=== PATIENT | female | born 1980 | race Caucasian/White ===

== ENCOUNTER 2017-02-16 11:20 | Emergency (ER) | payer SELFPAY ==
--- NOTE | 2017-02-16 11:57 | ED Physician Documentation ---
General Adult - HISTORIAN Historian: patient - HPI Stated Complaint: Left Ankle Injury Chief Complaint: General Adult Onset: days ago (1) Timing: still present Severity: moderate Further Comments: yes (Pt is a 36 yo female with L ankle pain after twisting her ankle on her porch last evening. Pain is over the lateral malleolus.) - ROS CONST: no problems EYES/ENT: none CVS/RESP: none GI/: none MS/SKIN/LYMPH: other (L ankle pain) - PAST HX Past History: other () Allergies/Adverse Reactions: Allergies Allergy/AdvReac Type Severity Reaction Status Date / Time codeine Allergy Mild Nausea/Vomi Verified 02/16/17 11:32 ting Home Medications: Ambulatory Orders Medication Instructions Recorded NK [NK] 09/14/14 - SOCIAL HX Smoking History: cigarettes - FAMILY HX Family History: No - VITAL SIGNS Vital Signs: Vital Signs Temp Pulse Resp BP Pulse Ox 98 F 82 18 139/87 98 02/16/17 11:20 02/16/17 11:20 02/16/17 11:20 02/16/17 11:20 02/16/17 11:20 - REVIEWED ASSESSMENTS Nursing Assessment Reviewed: Yes Vitals Reviewed: Yes Progress - Progress Progress: x-ray L ankle: negative air splint crutches prn ice, NSAIDS ED Results Lab/Radiology - Orders Orders: ED Orders Category Date Time Status ANKLE 3 VIEWS OR MORE [RAD] Stat Exams 02/16/17 Ordered General Adult Physical Exam - PHYSICAL EXAM GENERAL APPEARANCE: mild distress NECK: normal inspection, supple RESPIRATORY: no resp distress, chest non-tender CVS: reg rate & rhythm, heart sounds normal BACK: normal inspection SKIN: warm/dry, normal color EXTREMITIES: tenderness (L ankle tenderness, minimal swelling, FROM) NEURO: oriented X3, motor nml, sensation nml Discharge Clincal Impression: Left ankle sprain Qualifiers: Encounter type: initial encounter Involved ligament of ankle: unspecified ligament Qualified Code(s): S93.402A - Sprain of unspecified ligament of left ankle, initial encounter Referrals: Primary Doctor,No [Primary Care Provider] - Condition: Good Disposition: 01 HOME, SELF-CARE Decision to Admit: NO Decision Time: 11:59
[2017-02-16 12:27] VITALS: BP 128/68
--- NOTE | 2017-02-16 15:02 | Diagnostic Imaging Report ---
EVON ZHOU [facility] [address] [facility] [address] [address] Report Submission Date: Feb 16, 2017 11:46:56 AM MEDICAL SUPERINTENDENT Patient Study Name: MINH MARRERO Date: Feb 16, 2017 11:37:12 AM MEDICAL SUPERINTENDENT Modality Type: CR Gender: F Description: LOWER EXTREMITY : 82 Institution: [facility] Physician: EVON ZHOU Examination: Plain film ankle History: Ankle discomfort. Injury Findings: 3 views of the ankle demonstrates normal cortical margins. No fracture or dislocation. Talar dome is intact. No soft tissue swelling. No joint effusion. Impression: No acute osseous process. Electronically signed on Feb 16, 2017 11:46:56 AM MEDICAL SUPERINTENDENT by: Myles WELLS
== END 2017-02-16 12:22 | disposition home or self-care (01) ==
LOC: ED 11:20
DX: S93.402A Sprain of unspecified ligament of left ankle, initial encounter (principal); X58.XXXA Exposure to other specified factors, initial encounter; Y93.9 Activity, unspecified; Y99.9 Unspecified external cause status
CPT/HCPCS: 73610; 99283; L4350